=== PATIENT | male | born 1985 | race Caucasian/White ===

== ENCOUNTER 2017-01-09 14:36 | Inpatient (IN) | payer OTHER ==
[~2017-01-09] VITALS: Ht 180.3 cm; Wt 150.0 kg
[2017-01-09] VITALS (9 sets, daily range): BP systolic 130–149; BP diastolic 74–90
[~2017-01-09 14:36] MED LIST: AZITHROMYCIN250 MG PO; CIMETIDINE300 MG PO; CIPROFLOXACN500 MG PO; COMPAZINE10 MG OR; EPIPEN0.3 MG IM; FLEXERIL PO; FLONASE NASAL50 MCG; LORTAB 10 OR; LOTRISON1 EX; MEDDOSEPAK PO; METRONIDAZOL500 MG PO; MULTIVITAMI1 OR; OMNICEF300 MG PO; ONDANSETRON4 MG OR; ONDANSETRON4 MG PO; PHENERGAN25 MG RE; POLYTRIM OU; PREVACID30 M2 PO; ROBITUSSIN AC10 ML PO; ZITHROMAX500 MG PO
[2017-01-09 15:41] LABS: HEMATOCRIT 45.9 % (39.0-50.0); HEMOGLOBIN 15.9 g/dl (14.0-18.0); IMMATURE GRANULOCYTES 0.5 % (0.0-1.0); MEAN CELL VOLUME 86.6 fL CALC (80.0-100.0); MEAN CORPUSCULAR HGB CONC 34.6 g/L CALC (32.0-36.0); NEUT# 7.6 thou/uL (1.82-7.42); RED BLOOD COUNT 5.3 mill/uL (4.70-6.10); RED CELL DISTRI WIDTH 12.8 % (11.5-15.5)
[2017-01-09 15:45] LABS: PROTHROMBIN TIME 10.7 SECONDS (9.0-12.5)
[2017-01-09 15:49] LABS: ALBUMIN 4.3 g/dL (3.2-5.0); ALKALINE PHOSPHATASE 81 u/l (38-126); ANION GAP 14 (6-22 (CALC)); BILIRUBIN, TOTAL 0.6 mg/dL (0.0-1.4); BUN 17 mg/dL (9-20); BUN/CREATININE RATIO 16 (12-20 (CALC)); CALCIUM 9.3 mg/dL (8.4-10.2); CARBON DIOXIDE 24 mmol/l (22-30); CHLORIDE 107 mmol/l (95-108); GFR > 60 ML/MIN (>=60 (CALC)); GFR FOR AFR.AMER. > 60 ML/MIN (>=60 (CALC)); GLUCOSE 121 mg/dL (75-110); POTASSIUM 4.2 mmol/l (3.5-5.1); SGOT/AST 32 u/l (17-59); SGPT/ALT 64 u/l (21-72); SODIUM 141 mmol/l (137-146); TOTAL PROTEIN 6.9 g/dL (6.3-8.2)
[2017-01-10 00:35] VITALS: BP 141/55
[2017-01-10 04:40] VITALS: BP 138/83
[2017-01-10 08:06] VITALS: BP 129/65
[2017-01-10 16:00] VITALS: BP 150/96
[2017-01-10 20:00] VITALS: BP 147/83
[2017-01-11 01:00] VITALS: BP 150/88
[2017-01-11 04:50] VITALS: BP 138/83
[2017-01-11 07:08] LABS: HEMATOCRIT 42.2 % (39.0-50.0); HEMOGLOBIN 14.4 g/dl (14.0-18.0); IMMATURE GRANULOCYTES 0.6 % (0.0-1.0); MEAN CELL VOLUME 88.5 fL CALC (80.0-100.0); MEAN CORPUSCULAR HGB 30.2 pG CALC (26.0-32.0); MEAN CORPUSCULAR HGB CONC 34.1 g/L CALC (32.0-36.0); NEUT# 6.41 thou/uL (1.82-7.42); RED BLOOD COUNT 4.77 mill/uL (4.70-6.10); RED CELL DISTRI WIDTH 13.1 % (11.5-15.5)
[2017-01-11 07:30] LABS: ANION GAP 16 (6-22 (CALC)); BUN 11 mg/dL (9-20); BUN/CREATININE RATIO 11 (12-20 (CALC)); CALCIUM 8.5 mg/dL (8.4-10.2); CARBON DIOXIDE 28 mmol/l (22-30); CHLORIDE 102 mmol/l (95-108); GFR > 60 ML/MIN (>=60 (CALC)); GFR FOR AFR.AMER. > 60 ML/MIN (>=60 (CALC)); GLUCOSE 85 mg/dL (75-110); POTASSIUM 4.1 mmol/l (3.5-5.1); SODIUM 141 mmol/l (137-146)
[2017-01-11 09:13] VITALS: BP 144/85
== END 2017-01-11 16:08 | disposition home or self-care (01) | DRG 563 ==
LOC: ED 14:36 → ED-I 15:40 → ED 16:26 → MS2 16:27
PROVIDERS: Emergency Medicine; Nurse Practitioner Family; ADMIT Internal Medicine; ATTEND Internal Medicine
PROC: 0QSJXZZ Reposition Right Fibula, External Approach (ICD-10-PCS; principal; 2017-01-09)
PROC: 0QSGXZZ Reposition Right Tibia, External Approach (ICD-10-PCS; 2017-01-09)
PROC: 2W3QXYZ Immobilization of Right Lower Leg using Other Device (ICD-10-PCS; 2017-01-09)
DX: S82.831A Other fracture of upper and lower end of right fibula, initial encounter for closed fracture (principal); Z68.42 Body mass index [BMI] 45.0-49.9, adult; S82.871A Displaced pilon fracture of right tibia, initial encounter for closed fracture; S93.431A Sprain of tibiofibular ligament of right ankle, initial encounter; S90.511A Abrasion, right ankle, initial encounter; J45.909 Unspecified asthma, uncomplicated; E66.9 Obesity, unspecified; W11.XXXA Fall on and from ladder, initial encounter
CPT/HCPCS: J2710

== ENCOUNTER 2018-06-13 16:00 | Outpatient (RCR) | payer OTHER | END 2018-06-13 17:00 | disposition home or self-care (01) | DRG 556 | LOC: PT 16:00 | PROVIDERS: ATTEND Podiatrist Foot & Ankle Surgery | DX: M25.571 Pain in right ankle and joints of right foot (principal); Z47.89 Encounter for other orthopedic aftercare; S82.891D Other fracture of right lower leg, subsequent encounter for closed fracture with routine healing ==

== ENCOUNTER 2022-01-13 07:50 | Emergency (ER) | payer OTHER ==
[~2022-01-13] VITALS: Ht 180.3 cm; Wt 150.0 kg
[2022-01-13 07:55] VITALS: BP 140/88
[2022-01-13 08:01] VITALS: BP 140/89
[2022-01-13] MEDS ORDERED: ASPIRIN81 MG PO (08:01)
[2022-01-13] MEDS ORDERED: ROSUVASTATIN CAL5 MG (08:02)
[2022-01-13] MEDS ORDERED: NORVASC2.5 M1 PO (08:02)
[2022-01-13] MEDS ORDERED: LISINOPRIL2.5 MG PO (08:02)
[2022-01-13] MEDS ORDERED: LUNESTA1 M1 (08:03)
[2022-01-13 08:16] VITALS: BP 132/87
[2022-01-13] MEDS ORDERED: NEOSPORI2 EX (08:33)
[2022-01-13] MEDS ORDERED: LORTAB 1010 MG PO (08:33)
[2022-01-13] MEDS ORDERED: SILVADENE1 % EX (08:33)
[2022-01-13 08:46] VITALS: BP 150/92
[2022-01-13 08:47] VITALS: BP 150/92
== END 2022-01-13 08:52 | disposition home or self-care (01) | DRG 935 ==
LOC: ED 07:50
PROC: 2W21X4Z Dressing of Face using Bandage (ICD-10-PCS; principal; 2022-01-13)
PROC: 2W28X4Z Dressing of Right Upper Extremity using Bandage (ICD-10-PCS; 2022-01-13)
DX: T20.10XA Burn of first degree of head, face, and neck, unspecified site, initial encounter (principal); T22.131A Burn of first degree of right upper arm, initial encounter; T22.111A Burn of first degree of right forearm, initial encounter; T31.0 Burns involving less than 10% of body surface; I10 Essential (primary) hypertension; E78.00 Pure hypercholesterolemia, unspecified; X04.XXXA Exposure to ignition of highly flammable material, initial encounter; Y93.89 Activity, other specified; Y92.007 Garden or yard of unspecified non-institutional (private) residence as the place of occurrence of the external cause